=== PATIENT | female | born 1965 | race African-American/Black ===

== ENCOUNTER 2020-12-04 15:50 | Inpatient (IN) | payer BC ==
[2020-12-04] MEDS ORDERED: Fentanyl 100 MCG/2 ML VIAL ONE (17:19)
[2020-12-04 17:26] LABS: Bilirubin Neg (Negative); Blood, Urine 250 (Negative); Clarity Clear (Clear); Glucose, Urine (Dipstick) Normal (Negative); Ketone, Urine Negative (Negative); Leukocyte 25 (Negative); Nitrite Negative (Negative); Protein, Urine (Dipstick) Negative (Neg-Trace); Specific Gravity, Urine 1.005 (1.002-1.036); Urobilinogen Normal mg/dL (Less than 2)
[2020-12-04 17:59] LABS: Bacteria/HPF 2+ HPF (None Seen); Mucous/LPF 1+ LPF (<2+); RBC/HPF 0-3 HPF (0-3); Squamous Epithelial 0-3 HPF (0-3); WBC/HPF 0-3 HPF (0-3)
[2020-12-04 19:07] LABS: #Monocytes 0.6 10x3/uL (0.0-1.1); %Basophils 1.1 % (0.0-2.0); %Eosinophils 0.5 % (0.0-6.0); %Lymphocytes 28.7 % (18.0-47.0); %Monocytes 15.5 % (0.0-10.0); %Neutrophils 53.9 % (40.0-75.0); Hemoglobin 12.2 g/dL (12.0-15.5); Mean Corpuscular HGB CONC 35.2 g/dL (32.0-36.0); Mean Corpuscular Hemoglobin 30.8 pg (27.0-33.0); Mean Corpuscular Volume 87.6 fl (81.6-98.3); Mean Platelet Volume 10.1 fl (7.4-10.4); Platelet Count 86 10x3/uL (150-450); RBC Distribution Width 17.1 % (11.5-14.5); Red Blood Cell (RBC) Count 3.96 10x6/uL (3.90-5.03); White Blood Cell (WBC) Count 3.7 10x3/uL (3.5-10.5)
[2020-12-04 19:12] LABS: ALT (SGPT) 91 U/L (8-55); AST (SGOT) 570 U/L (5-34); Alkaline Phosphatase 132 U/L (40-110); Anion Gap 22 mmol/L (10-20); BUN (Urea Nitrogen) 4 mg/dL (9.8-20.1); Bilirubin, Total 0.9 mg/dL (0.2-1.2); Calc. Creatinine Clearance 0 mL/min (70-130); Calcium 8.2 mg/dL (7.8-10.44); Carbon Dioxide 21 mmol/L (22-29); Chloride 95 mmol/L (98-107); Globulin 3.7 g/dL (2.4-3.5); Glucose 81 mg/dL (70-105); Potassium 4.1 mmol/L (3.5-5.1); Protein, Total 7.7 g/dL (6.0-8.3); Sodium 134 mmol/L (136-145)
[2020-12-04] MEDS ORDERED: Ondansetron PF 4 MG/2 ML Vial ONE (20:46)
[2020-12-04] MEDS ORDERED: Lorazepam 2 MG/ML VIAL ONE (20:48)
[2020-12-04] MEDS ORDERED: Thiamine 100 MG TAB ONE (20:50)
[2020-12-04] MEDS ORDERED: Folic Acid 1 MG TAB PO SCH (23:45)
[2020-12-04] MEDS ORDERED: Thiamine HCl 200 MG/2 ML VIAL SLOW IVP SCH (23:45)
[2020-12-04] MEDS ORDERED: Ondansetron ODT 4 MG TAB PO PRN (23:46)
[2020-12-04] MEDS ORDERED: oxyCODONE 5 MG TAB PO PRN (23:53)
[2020-12-05 00:35] VITALS: BMI 24.9
[2020-12-05] MEDS: Sodium Chloride 0.9% 1,000 ML IV SCH ×5 (00:47→21:39)
[2020-12-05 05:07] LABS: ALT (SGPT) 73 U/L (8-55); AST (SGOT) 378 U/L (5-34); Albumin 3.3 g/dL (3.5-5.0); Alkaline Phosphatase 107 U/L (40-110); Anion Gap 21 mmol/L (10-20); BUN (Urea Nitrogen) 4 mg/dL (9.8-20.1); Bilirubin, Direct 0.6 mg/dL (0.1-0.3); Bilirubin, Total 1.1 mg/dL (0.2-1.2); Calc. Creatinine Clearance 121 mL/min (70-130); Calcium 8.1 mg/dL (7.8-10.44); Carbon Dioxide 21 mmol/L (22-29); Chloride 96 mmol/L (98-107); Glucose 65 mg/dL (70-105); Potassium 3.7 mmol/L (3.5-5.1); Protein, Total 6.6 g/dL (6.0-8.3); Sodium 134 mmol/L (136-145)
[2020-12-05 05:09] LABS: #Monocytes 0.6 10x3/uL (0.0-1.1); #Neutrophils 1.9 10x3/uL (1.5-8.4); %Basophils 0.9 % (0.0-2.0); %Eosinophils 0.6 % (0.0-6.0); %Lymphocytes 26.4 % (18.0-47.0); %Monocytes 16.2 % (0.0-10.0); %Neutrophils 55.6 % (40.0-75.0); Hemoglobin 10.6 g/dL (12.0-15.5); Mean Corpuscular HGB CONC 35.1 g/dL (32.0-36.0); Mean Corpuscular Hemoglobin 30.9 pg (27.0-33.0); Mean Platelet Volume 10.9 fl (7.4-10.4); Platelet Count 75 10x3/uL (150-450); RBC Distribution Width 17.1 % (11.5-14.5); Red Blood Cell (RBC) Count 3.43 10x6/uL (3.90-5.03); White Blood Cell (WBC) Count 3.5 10x3/uL (3.5-10.5)
[2020-12-05 05:35] LABS: PTT 26.5 sec (22.0-33.0); Prothrombin Time 11.5 sec (9.5-12.1)
[2020-12-05 05:49] LABS: CK (CPK) 12804 U/L (29-168)
[2020-12-05] MEDS: Amlodipine 5 MG TAB PO SCH (08:35)
[2020-12-05] MEDS: Famotidine 20 MG TAB PO SCH ×2 (08:35→21:39)
[2020-12-05] MEDS: Ondansetron PF 4 MG/2 ML Vial IVP PRN ×2 (08:35→19:13)
[2020-12-05] MEDS: levETIRAcetam 500 MG TAB PO SCH ×2 (08:36→21:39)
[2020-12-05] MEDS: HYDROcodone/Acetaminophen 5/325 mg Tablet PO PRN ×2 (14:09→21:40)
[2020-12-05 15:39] LABS: SARS-CoV-2 PCR by NAA Not Detected (NotDetected)
[2020-12-05] MEDS ORDERED: Promethazine HCl 12.5 MG, Admixture Fee 1 EACH in Sodium Chloride 0.9% 50 ML IVPB PRN (17:05)
[2020-12-05] MEDS ORDERED: Lorazepam 2 MG/ML VIAL SLOW IVP PRN (17:08)
[2020-12-05] MEDS: chlordiazePOXIDE HCl 25 MG CAP PO SCH (21:39)
[2020-12-05] MEDS ORDERED: Promethazine HCl 25 MG/ML VIAL ONE (22:11)
[2020-12-06] MEDS: Sodium Chloride 0.9% 1,000 ML IV SCH ×5 (04:30→21:01)
[2020-12-06 05:52] LABS: #Eosinphils 0.1 10x3/uL (0.0-0.5); #Monocytes 0.6 10x3/uL (0.0-1.1); #Neutrophils 2.1 10x3/uL (1.5-8.4); %Basophils 0.7 % (0.0-2.0); %Eosinophils 2.7 % (0.0-6.0); %Lymphocytes 28.2 % (18.0-47.0); %Monocytes 15.6 % (0.0-10.0); %Neutrophils 52.6 % (40.0-75.0); Hemoglobin 11.3 g/dL (12.0-15.5); Mean Corpuscular HGB CONC 34.3 g/dL (32.0-36.0); Mean Corpuscular Volume 90.4 fl (81.6-98.3); Mean Platelet Volume 9.9 fl (7.4-10.4); Platelet Count 80 10x3/uL (150-450); RBC Distribution Width 17.2 % (11.5-14.5); Red Blood Cell (RBC) Count 3.64 10x6/uL (3.90-5.03)
[2020-12-06 06:07] LABS: ALT (SGPT) 74 U/L (8-55); AST (SGOT) 283 U/L (5-34); Albumin 3.5 g/dL (3.5-5.0); Alkaline Phosphatase 100 U/L (40-110); Anion Gap 15 mmol/L (10-20); BUN (Urea Nitrogen) Less than 4 mg/dL (9.8-20.1); Bilirubin, Total 1.4 mg/dL (0.2-1.2); Calc. Creatinine Clearance 128 mL/min (70-130); Carbon Dioxide 28 mmol/L (22-29); Chloride 96 mmol/L (98-107); Globulin 3.6 g/dL (2.4-3.5); Glucose 89 mg/dL (70-105); Potassium 3.1 mmol/L (3.5-5.1); Protein, Total 7.1 g/dL (6.0-8.3); Sodium 136 mmol/L (136-145)
[2020-12-06 06:32] LABS: CK (CPK) 9853 U/L (29-168)
[2020-12-06] MEDS ORDERED: Potassium Chloride 20 MEQ TAB PO SCH (07:30)
[2020-12-06] MEDS: Famotidine 20 MG TAB PO SCH ×2 (08:08→20:58)
[2020-12-06] MEDS: chlordiazePOXIDE HCl 25 MG CAP PO SCH ×3 (08:08→20:58)
[2020-12-06] MEDS: levETIRAcetam 500 MG TAB PO SCH ×2 (08:08→20:58)
[2020-12-06] MEDS: Amlodipine 5 MG TAB PO SCH (08:09)
[2020-12-07 04:37] LABS: ALT (SGPT) 65 U/L (8-55); AST (SGOT) 204 U/L (5-34); Albumin 3.2 g/dL (3.5-5.0); Alkaline Phosphatase 93 U/L (40-110); Bilirubin, Direct 0.4 mg/dL (0.1-0.3); Protein, Total 6.7 g/dL (6.0-8.3)
[2020-12-07 04:40] LABS: Anion Gap 17 mmol/L (10-20); BUN (Urea Nitrogen) 5 mg/dL (9.8-20.1); Calc. Creatinine Clearance 126 mL/min (70-130); Calcium 8.5 mg/dL (7.8-10.44); Carbon Dioxide 26 mmol/L (22-29); Chloride 98 mmol/L (98-107); Glucose 88 mg/dL (70-105); Potassium 3.5 mmol/L (3.5-5.1); Sodium 137 mmol/L (136-145)
[2020-12-07 04:51] LABS: CK (CPK) 5084 U/L (29-168)
[2020-12-07] MEDS: Sodium Chloride 0.9% 1,000 ML IV SCH ×2 (06:11→10:52)
[2020-12-07] MEDS: Famotidine 20 MG TAB PO SCH (08:04)
[2020-12-07] MEDS: chlordiazePOXIDE HCl 25 MG CAP PO SCH (08:04)
[2020-12-07] MEDS: Amlodipine 5 MG TAB PO SCH (08:04)
[2020-12-07] MEDS: levETIRAcetam 500 MG TAB PO SCH (08:04)
[2020-12-07 08:18] VITALS: TEMP 98
[2020-12-07 13:16] VITALS: BP 130/92
== END 2020-12-07 13:08 | disposition home or self-care (01) | DRG 897 ==
LOC: CSHERS 15:50 → EEVIPCON 23:28 → CSHTELE 23:28
PROVIDERS: ADMIT Family Medicine; ATTEND Internal Medicine
DX: F10.239 Alcohol dependence with withdrawal, unspecified (principal); M62.82 Rhabdomyolysis; I10 Essential (primary) hypertension; Z20.822 Contact with and (suspected) exposure to COVID-19; G40.909 Epilepsy, unspecified, not intractable, without status epilepticus; I25.10 Atherosclerotic heart disease of native coronary artery without angina pectoris; Z95.5 Presence of coronary angioplasty implant and graft; Z98.51 Tubal ligation status; G62.9 Polyneuropathy, unspecified; F20.9 Schizophrenia, unspecified; F31.9 Bipolar disorder, unspecified; M54.5 Low back pain; D69.6 Thrombocytopenia, unspecified; K70.9 Alcoholic liver disease, unspecified; R25.1 Tremor, unspecified; Z79.899 Other long term (current) drug therapy
CPT/HCPCS: 36415; 70450; 71045; 80048; 80053; 80076; 80307; 81003; 81015; 82550; 82607; 82746; 83735; 84146; 84484; 85025; 85610; 85730; 87635; 93005; 93010; 94760; 96374; 96375; J2060; J2405; J2550; J3010; J3411; U0003; U0005

== ENCOUNTER 2021-07-20 16:17 | Emergency (ER) | payer BC, MEDICAID, OTHER ==
[2021-07-20] MEDS ORDERED: Lorazepam 2 MG/ML VIAL ONE (17:02)
[2021-07-20] MEDS ORDERED: Ondansetron PF 4 MG/2 ML Vial ONE (17:02)
[2021-07-20 17:13] LABS: #Monocytes 0.5 10x3/uL (0.0-1.1); #Neutrophils 2.5 10x3/uL (1.5-8.4); %Basophils 0.7 % (0.0-2.0); %Eosinophils 0.2 % (0.0-6.0); %Lymphocytes 24.8 % (18.0-47.0); %Monocytes 12.2 % (0.0-10.0); %Neutrophils 61.9 % (40.0-75.0); Hemoglobin 12.6 g/dL (12.0-15.5); Mean Corpuscular HGB CONC 35.2 g/dL (32.0-36.0); Mean Corpuscular Hemoglobin 32.6 pg (27.0-33.0); Mean Corpuscular Volume 92.7 fl (81.6-98.3); Mean Platelet Volume 9.3 fl (7.4-10.4); Platelet Count 107 10x3/uL (150-450); RBC Distribution Width 13.3 % (11.5-14.5); Red Blood Cell (RBC) Count 3.86 10x6/uL (3.90-5.03); White Blood Cell (WBC) Count 4.1 10x3/uL (3.5-10.5)
[2021-07-20 17:29] LABS: ALT (SGPT) 97 U/L (8-55); AST (SGOT) 405 U/L (5-34); Albumin 3.5 g/dL (3.5-5.0); Alcohol 34 mg/dL (Less than 10); Alkaline Phosphatase 136 U/L (40-110); Anion Gap 21 mmol/L (10-20); BUN (Urea Nitrogen) Less than 4 mg/dL (9.8-20.1); Bilirubin, Total 1.1 mg/dL (0.2-1.2); Calc. Creatinine Clearance 0 mL/min (70-130); Calcium 8.7 mg/dL (7.8-10.44); Carbon Dioxide 22 mmol/L (22-29); Chloride 93 mmol/L (98-107); Globulin 4.3 g/dL (2.4-3.5); Glucose 93 mg/dL (70-105); Potassium 4.5 mmol/L (3.5-5.1); Protein, Total 7.8 g/dL (6.0-8.3); Sodium 131 mmol/L (136-145)
[2021-07-20] MEDS ORDERED: Thiamine HCl 200 MG/2 ML VIAL SLOW IVP SCH (18:00)
[2021-07-20] MEDS ORDERED: Folic Acid 1 MG, Multivitamins, Adult 10 ML in Dextrose 5 %-0.45 % NaCl 1,000 ML IV SCH (18:00)
== END 2021-07-20 20:53 | disposition home or self-care (01) ==
LOC: CSHERS 16:17
DX: F10.10 Alcohol abuse, uncomplicated (principal); Y90.0 Blood alcohol level of less than 20 mg/100 ml; I10 Essential (primary) hypertension
CPT/HCPCS: 36415; 80053; 80307; 85025; 96365; 96375; J2060; J2405; J7042

== ENCOUNTER 2021-07-23 08:14 | Observation (INO) | payer OTHER ==
[~2021-07-23 08:14] MED LIST: Lorazepam 1 MG TAB PO PRN
[2021-07-23 09:04] LABS: #Eosinphils 0.1 10x3/uL (0.0-0.5); #Monocytes 0.6 10x3/uL (0.0-1.1); #Neutrophils 3.2 10x3/uL (1.5-8.4); %Basophils 0.4 % (0.0-2.0); %Lymphocytes 22.3 % (18.0-47.0); %Monocytes 11.7 % (0.0-10.0); %Neutrophils 64.4 % (40.0-75.0); Hemoglobin 12.7 g/dL (12.0-15.5); Mean Corpuscular HGB CONC 34.8 g/dL (32.0-36.0); Mean Corpuscular Hemoglobin 32.4 pg (27.0-33.0); Mean Corpuscular Volume 93.2 fl (81.6-98.3); Mean Platelet Volume 9.4 fl (7.4-10.4); Platelet Count 85 10x3/uL (150-450); RBC Distribution Width 12.9 % (11.5-14.5); Red Blood Cell (RBC) Count 3.95 10x6/uL (3.90-5.03); White Blood Cell (WBC) Count 4.8 10x3/uL (3.5-10.5)
[2021-07-23 09:17] LABS: ALT (SGPT) 80 U/L (8-55); AST (SGOT) 186 U/L (5-34); Albumin 3.5 g/dL (3.5-5.0); Alkaline Phosphatase 102 U/L (40-110); Anion Gap 16 mmol/L (10-20); BUN (Urea Nitrogen) Less than 4 mg/dL (9.8-20.1); Bilirubin, Total 1.6 mg/dL (0.2-1.2); CK (CPK) 2576 U/L (29-168); Calc. Creatinine Clearance 0 mL/min (70-130); Calcium 8.8 mg/dL (7.8-10.44); Carbon Dioxide 25 mmol/L (22-29); Chloride 95 mmol/L (98-107); Globulin 3.9 g/dL (2.4-3.5); Glucose 89 mg/dL (70-105); Magnesium 1.6 mg/dL (1.6-2.6); Potassium 3.6 mmol/L (3.5-5.1); Protein, Total 7.4 g/dL (6.0-8.3); Sodium 132 mmol/L (136-145)
[2021-07-23 09:18] LABS: Acetaminophen Less than 6.0 mcg/mL (10.0-30.0); Alcohol Less than 10 mg/dL (Less than 10); Salicylate Less than 8.0 mg/dL (15.0-30.0)
[2021-07-23 09:27] LABS: SARS-CoV-2 NAA Rapid Test Not Detected (NotDetected)
[2021-07-23 09:56] LABS: Bilirubin Neg (Negative); Blood, Urine 10 (Negative); Glucose, Urine (Dipstick) Normal (Negative); Ketone, Urine 5 mg/dL (Negative); Leukocyte 500 (Negative); Nitrite Positive (Negative); Protein, Urine (Dipstick) 15 mg/dl (Neg-Trace)
[2021-07-23 09:59] LABS: Pregnancy Test - Urine (BHCG) Negative (Negative); Pregu Control Background? CLEAR/WHITE (CLR/WHITE); Pregu Control Bar Appear? YES (CONTROL BAR)
[2021-07-23 10:01] LABS: Amphetamine Not Detected (NotDetected); Barbiturates Screen Not Detected (NotDetected); Benzodiazepine Screen Not Detected (NotDetected); Cocaine Metabolite Screen Not Detected (NotDetected); Methadone Not Detected (NotDetected); Methamphetamine Not Detected (NotDetected); Opiate Screen Not Detected (NotDetected); Oxycodone Screen Not Detected (NotDetected); Phencyclidine (PCP) Not Detected (NotDetected); THC/Cannabinoid Screen Not Detected (NotDetected); Tricyclic Screen Not Detected (NotDetected)
[2021-07-23 10:10] LABS: Clarity Slightly Cloudy (Clear)
[2021-07-23] MEDS ORDERED: Lorazepam 2 MG/ML VIAL ONE (10:12)
[2021-07-23] MEDS ORDERED: Thiamine HCl 200 MG/2 ML VIAL ONE (10:12)
[2021-07-23 10:13] LABS: Bacteria/HPF 3+ HPF (None Seen)
[2021-07-23] MEDS ORDERED: cefTRIAXone\\ROCEPHIN 1 GM VIAL ONE (10:25)
[2021-07-23] MEDS ORDERED: Folic Acid 1 MG, Multivitamins, Adult 10 ML in Dextrose 5 %-0.45 % NaCl 1,000 ML IV SCH (10:30)
[2021-07-23] MEDS ORDERED: Ondansetron ODT 4 MG TAB PO PRN ×2 (12:46→13:15)
[2021-07-23] MEDS ORDERED: Electrolyte Replacement Protocol 1 EACH FS SCH ×2 (13:00→14:00)
[2021-07-23] MEDS ORDERED: Lorazepam 2 MG/ML VIAL IM PRN (13:15)
[2021-07-23] MEDS ORDERED: Magnesium 2 GM/50 ML 2 GM in Premix Bag 1 BAG IVPB SCH (14:00)
[2021-07-23] MEDS ORDERED: Electrolyte Replacement Protocol FS PRN (14:00)
[2021-07-23] MEDS: Lorazepam 1 MG TAB PO SCH ×4 (14:07→23:59)
[2021-07-23 15:57] VITALS: BMI 25.3
[2021-07-23] MEDS: Sodium Chloride 0.9% 1,000 ML IV SCH (18:44)
[2021-07-23] MEDS: levETIRAcetam 500 MG TAB PO SCH (21:51)
[2021-07-24] MEDS: Sodium Chloride 0.9% 1,000 ML IV SCH ×4 (05:39→20:34)
[2021-07-24] MEDS: Lorazepam 1 MG TAB PO SCH ×3 (05:40→19:48)
[2021-07-24 06:39] LABS: ALT (SGPT) 51 U/L (8-55); AST (SGOT) 79 U/L (5-34); Alkaline Phosphatase 90 U/L (40-110); Anion Gap 12 mmol/L (10-20); BUN (Urea Nitrogen) Less than 4 mg/dL (9.8-20.1); Bilirubin, Total 1.3 mg/dL (0.2-1.2); CK (CPK) 1108 U/L (29-168); Calc. Creatinine Clearance 138 mL/min (70-130); Calcium 8.1 mg/dL (7.8-10.44); Carbon Dioxide 25 mmol/L (22-29); Chloride 104 mmol/L (98-107); Globulin 3.3 g/dL (2.4-3.5); Glucose 93 mg/dL (70-105); Phosphorus 3.9 mg/dL (2.3-4.7); Protein, Total 6.3 g/dL (6.0-8.3); Sodium 138 mmol/L (136-145)
[2021-07-24 06:49] LABS: Potassium 2.7 mmol/L (3.5-5.1)
[2021-07-24 06:51] LABS: #Eosinphils 0.1 10x3/uL (0.0-0.5); #Monocytes 0.6 10x3/uL (0.0-1.1); #Neutrophils 2.9 10x3/uL (1.5-8.4); %Basophils 0.6 % (0.0-2.0); %Eosinophils 1.1 % (0.0-6.0); %Lymphocytes 23.2 % (18.0-47.0); %Monocytes 12.3 % (0.0-10.0); %Neutrophils 62.6 % (40.0-75.0); Hemoglobin 11.9 g/dL (12.0-15.5); Mean Corpuscular HGB CONC 33.9 g/dL (32.0-36.0); Mean Corpuscular Hemoglobin 32.3 pg (27.0-33.0); Mean Corpuscular Volume 95.4 fl (81.6-98.3); Mean Platelet Volume 10.6 fl (7.4-10.4); Platelet Count 100 10x3/uL (150-450); RBC Distribution Width 13.5 % (11.5-14.5); Red Blood Cell (RBC) Count 3.68 10x6/uL (3.90-5.03); White Blood Cell (WBC) Count 4.7 10x3/uL (3.5-10.5)
[2021-07-24] MEDS: Folic Acid 1 MG TAB PO SCH (08:20)
[2021-07-24] MEDS: Amlodipine 10 MG TAB PO SCH (08:20)
[2021-07-24] MEDS: Potassium Chloride 20 MEQ TAB PO SCH ×2 (08:20→14:03)
[2021-07-24] MEDS: levETIRAcetam 500 MG TAB PO SCH ×2 (08:21→20:33)
[2021-07-24] MEDS: Multivit, Therapeutic 1 TAB PO SCH (08:21)
[2021-07-24] MEDS ORDERED: Thiamine 100 MG TAB PO SCH (09:00)
[2021-07-24] MEDS ORDERED: Lorazepam 1 MG TAB PO PRN (13:15)
[2021-07-24 14:42] LABS: Anion Gap 15 mmol/L (10-20); BUN (Urea Nitrogen) Less than 4 mg/dL (9.8-20.1); Calc. Creatinine Clearance 133 mL/min (70-130); Calcium 8.2 mg/dL (7.8-10.44); Carbon Dioxide 19 mmol/L (22-29); Chloride 106 mmol/L (98-107); Glucose 106 mg/dL (70-105); Sodium 136 mmol/L (136-145)
[2021-07-24] MEDS: Thiamine HCl 200 MG/2 ML VIAL SLOW IVP SCH (15:48)
[2021-07-24] MEDS: cefTRIAXone\\ROCEPHIN 1 GM in Sodium Chloride 0.9% 100 ML IVPB SCH (15:49)
[2021-07-25] MEDS: Lorazepam 1 MG TAB PO SCH (00:19)
[2021-07-25] MEDS: Acetaminophen 325 MG TAB PO PRN ×2 (00:19→21:03)
[2021-07-25 04:03] LABS: #Eosinphils 0.1 10x3/uL (0.0-0.5); #Monocytes 0.7 10x3/uL (0.0-1.1); #Neutrophils 1.5 10x3/uL (1.5-8.4); %Basophils 0.5 % (0.0-2.0); %Eosinophils 1.6 % (0.0-6.0); %Lymphocytes 39.8 % (18.0-47.0); %Monocytes 18.2 % (0.0-10.0); %Neutrophils 39.6 % (40.0-75.0); Hemoglobin 10.6 g/dL (12.0-15.5); Mean Corpuscular HGB CONC 33.9 g/dL (32.0-36.0); Mean Corpuscular Hemoglobin 32.6 pg (27.0-33.0); Mean Corpuscular Volume 96.3 fl (81.6-98.3); Mean Platelet Volume 10.1 fl (7.4-10.4); Platelet Count 109 10x3/uL (150-450); RBC Distribution Width 13.6 % (11.5-14.5); Red Blood Cell (RBC) Count 3.25 10x6/uL (3.90-5.03); White Blood Cell (WBC) Count 3.7 10x3/uL (3.5-10.5)
[2021-07-25 04:08] LABS: ALT (SGPT) 41 U/L (8-55); AST (SGOT) 54 U/L (5-34); Albumin 2.8 g/dL (3.5-5.0); Alkaline Phosphatase 67 U/L (40-110); Anion Gap 12 mmol/L (10-20); BUN (Urea Nitrogen) Less than 4 mg/dL (9.8-20.1); Bilirubin, Total 0.6 mg/dL (0.2-1.2); CK (CPK) 536 U/L (29-168); Calc. Creatinine Clearance 141 mL/min (70-130); Calcium 8.2 mg/dL (7.8-10.44); Carbon Dioxide 22 mmol/L (22-29); Chloride 105 mmol/L (98-107); Globulin 3.3 g/dL (2.4-3.5); Glucose 94 mg/dL (70-105); Potassium 3.4 mmol/L (3.5-5.1); Protein, Total 6.1 g/dL (6.0-8.3); Sodium 136 mmol/L (136-145)
[2021-07-25] MEDS ORDERED: Potassium Chloride 20 MEQ TAB PO SCH (04:30)
[2021-07-25] MEDS: Sodium Chloride 0.9% 1,000 ML IV SCH ×2 (04:37→16:57)
[2021-07-25 05:41] LABS: Band 1 % (5-11); Eosinophils 3 % (0-10); Lymphocytes 38 % (21-51); Monocytes 16 % (0-10); Neutrophil 42 % (42-75)
[2021-07-25 05:42] LABS: Large Platelets SLIGHT; Platelet Morphology Comment Appears Decreased
[2021-07-25 05:43] LABS: MDiff Complete? YES; Manual Diff?? YES
[2021-07-25 05:44] LABS: RBC Morphology Normal
[2021-07-25] MEDS: Lorazepam 0.5 MG TAB PO SCH ×4 (05:59→23:41)
[2021-07-25] MEDS: Multivit, Therapeutic 1 TAB PO SCH (09:36)
[2021-07-25] MEDS: levETIRAcetam 500 MG TAB PO SCH ×2 (09:36→21:03)
[2021-07-25] MEDS: Amlodipine 10 MG TAB PO SCH (09:36)
[2021-07-25] MEDS: Folic Acid 1 MG TAB PO SCH (09:37)
[2021-07-25] MEDS: Thiamine HCl 200 MG/2 ML VIAL SLOW IVP SCH (09:37)
[2021-07-25] MEDS ORDERED: Lorazepam 1 MG TAB PO PRN (13:15)
[2021-07-25] MEDS: cefTRIAXone\\ROCEPHIN 1 GM in Sodium Chloride 0.9% 100 ML IVPB SCH (14:55)
[2021-07-26] MEDS: Sodium Chloride 0.9% 1,000 ML IV SCH (04:42)
[2021-07-26] MEDS ORDERED: Lorazepam 0.5 MG TAB PO PRN (06:00)
[2021-07-26 08:44] VITALS: BP 131/83; TEMP 98.7
[2021-07-26] MEDS ORDERED: Thiamine 100 MG TAB PO SCH (09:00)
[2021-07-26] MEDS: levETIRAcetam 500 MG TAB PO SCH (10:01)
[2021-07-26] MEDS: Multivit, Therapeutic 1 TAB PO SCH (10:02)
[2021-07-26] MEDS: Amlodipine 10 MG TAB PO SCH (10:02)
[2021-07-26] MEDS: Folic Acid 1 MG TAB PO SCH (10:03)
== END 2021-07-26 12:22 | disposition home or self-care (01) ==
LOC: CSHERS 08:14 → CSHTELE 11:46
PROVIDERS: ADMIT Internal Medicine; ATTEND Hospitalist
DX: R41.82 Altered mental status, unspecified (principal); F20.9 Schizophrenia, unspecified; F31.9 Bipolar disorder, unspecified; M62.82 Rhabdomyolysis; F41.9 Anxiety disorder, unspecified; F10.230 Alcohol dependence with withdrawal, uncomplicated; G40.909 Epilepsy, unspecified, not intractable, without status epilepticus; Z79.899 Other long term (current) drug therapy; I10 Essential (primary) hypertension; F10.20 Alcohol dependence, uncomplicated; G62.9 Polyneuropathy, unspecified; I25.10 Atherosclerotic heart disease of native coronary artery without angina pectoris; Z95.5 Presence of coronary angioplasty implant and graft; Z98.51 Tubal ligation status; K21.9 Gastro-esophageal reflux disease without esophagitis; D69.6 Thrombocytopenia, unspecified; Z20.822 Contact with and (suspected) exposure to COVID-19
CPT/HCPCS: 36415; 70450; 71045; 80053; 80306; 80307; 81003; 81015; 81025; 82140; 82550; 83735; 84100; 84443; 85025; 87086; 93005; 94760; 96365; 96368; 96375; 96376; G0378; J0696; J2060; J3411; J3475; J3490; J7042; J7050; U0002

== ENCOUNTER 2022-01-04 21:46 | Emergency (ER) | payer MEDICAID, MEDICARE, OTHER ==
[2022-01-04] MEDS ORDERED: Ketorolac Tromethamine 30 MG/ML VIAL ONE (22:19)
== END 2022-01-04 22:22 | disposition home or self-care (01) ==
LOC: CSHERS 21:46
DX: M54.40 Lumbago with sciatica, unspecified side (principal); G89.29 Other chronic pain; I10 Essential (primary) hypertension; D25.9 Leiomyoma of uterus, unspecified; Z87.19 Personal history of other diseases of the digestive system
CPT/HCPCS: 96372; 99283; J1885